=== PATIENT | female | born 1945 | race Caucasian/White ===

== ENCOUNTER → 2023-04-02 14:18 | Outpatient (REF) | payer MEDICARE, SELFPAY | LOC: WDC 14:18 | PROVIDERS: ATTENDING PHYSICIAN Internal Medicine | DX: Z12.31 Encounter for screening mammogram for malignant neoplasm of breast (principal); Z85.3 Personal history of malignant neoplasm of breast | CPT/HCPCS: 77063; 77067 ==

== ENCOUNTER 2023-07-03 07:40 | Emergency (ER) | payer MEDICARE, SELFPAY ==
[2023-07-03] VITALS (7 sets, daily range): BP systolic 116–145; BP diastolic 59–90
[2023-07-03 08:31] LABS: % Basophils 0.2 % (0-2); % Eosinophils 0.1 % (0-6); % Immature Granulocytes 0.5 % (0-0.5); % Lymphocytes 9.5 % (20.5-51.1); % Monocytes 12.7 % (1.7-9.3); Absolute Lymphocytes 0.8 10^3/uL (1.2-3.4); Absolute Monocytes 1.1 10^3/uL (0.1-0.6); Absolute Neutrophils 6.6 10^3/uL (1.4-6.5); Hematocrit 37.1 % (37.0-47.0); Hemoglobin 13.3 g/dL (12.0-16.0); Mean Corp Hgb Conc. 35.8 g/dL (33.0-37.0); Mean Corpuscular Hgb 29.4 pg (27.0-31.0); Mean Corpuscular Volume 81.9 fL (81.0-99.0); Mean Platelet Volume 9.8 fL (7.4-10.4); Nucleated Red Blood Cells % 0 %; Platelet Count 234 10^3/uL (130-400); Red Blood Cell Count 4.53 10^6/uL (4.20-5.40); Red Cell Dist. Width 13.1 % (11.5-14.5); White Blood Cell Count 8.6 10^3/uL (4.8-10.8)
--- NOTE | 2023-07-03 08:31 | ED.GENMED ---
History of Present Illness
General
Chief Complaint: Throat Problem
Source: patient and spouse
Exam Limitations: none
Time Seen by Provider: 07/03/23 08:15
Nursing documentation reviewed up to this point in time: agreed with
Travel History
Have you had any contact with someone who has COVID-19?: No
Do you have any symptoms of coronavirus? Fever > 100 degrees, chills, cough, shortness of breath, sore throat, loss of taste or smell, muscle aches, or headache?: No
History of Present Illness
History of Present Illness:
78-year-old female with a past medical history of hypertension, breast cancer status post left mastectomy who presents to the emergency department for evaluation of sore throat and fatigue. Patient reports onset of symptoms 5 days ago and have been
constant since that time. She reports sore throat worse with swallowing. She says she increased fatigue and bodyaches. She says that she has been feeling very shaky. She says she has had a mild intermittent headache (no headache today).
Describes subjective fever intermittently. She says that the symptoms have been ongoing in the setting of recent difficulties with urinary tract infection�she had her typical UTI symptoms of dysuria and increased frequency and saw her primary
doctor 2 weeks ago and was treated with Bactrim which did not help; she was then treated with Macrodantin which again did not help; finally last Sunday she was treated with fosfomycin which seems to have resolved her UTI symptoms but she is now
having throat pain and bodyaches as above. She did have an episode of 'crumpling up' on he says that she felt too weak to support her self but did not feel dizzy or lightheaded and did not pass out. Patient denies any chest pain, cough,
shortness of breath. She denies any GI symptoms. She adds that she thinks that this dental procedure may have precipitated her throat pain�she says that she was given some Novocain and that she thinks it may have dripped down her throat and
irritated things.
Past History
Past History
ED Past Medical History: HTN
ED Past Surgical History: None
Social History
Tobacco: Non-smoker
Alcohol: None
Drug: None
Personal:
Living: alone
Review of Systems
Review of Systems
All Other Systems: ROS reviewed and negative except as documented in HPI and ROS
Constitutional: Reports fever, fatigue and chills
EENT: Reports sore throat; Denies runny nose
Respiratory: Denies cough or trouble breathing
Cardiac: Denies chest pain or palpitations
ABD/GI: Denies abdominal pain, nausea or vomiting
: Denies dysuria, frequency or flank pain
Musculoskeletal: Denies neck pain or back pain
Neurological: Reports headache and weakness (Generalized); Denies numbness
Phy Exam
Physical Exam
Physical Exam:
General: Awake, alert, oriented x3; no acute distress
Head: Normocephalic, atraumatic
Eyes: Conjunctiva normal, EOMI
Throat: Airway intact, handling secretions, no tongue elevation; patient has significant erythema of the uvula and tonsils, soft palate; she has small shallow ulceration on the left upper soft palate and right tonsil; uvula is midline
Neck: Trachea midline, supple without meningismus, left greater than right cervical adenopathy
Lungs: Clear to auscultation bilaterally, no wheezing, rales, rhonchi
Heart: Regular rate and rhythm, no murmurs, gallops, or rubs
Abd: Soft, non distended, nontender
Neuro: Cranial nerves grossly intact, speech fluid, motor and sensory function intact and symmetric in all extremities
Skin: no rash
Extremities: No edema in extremities, equal pulses in all extremities
Scores
Heart Failure Risk
Heart Failure Risk Score: Not Applicable
Heart Score for Chest Pain Patients
STEMI patient?: Not applicable
Withdrawal Assessment of Alcohol
Withdrawal Assessment Completed?: Not applicable
Course
Orders/Labs/Results
Orders:
Orders
07/03/23 08:16
Electrocardiogram (*1) Urgent
Reason for Study: Syncope
EKG- Treatment ONCE
07/03/23 08:24
CMP [Comprehensive Metabolic Panel] Urgent
Complete Blood Count/With Diff Urgent
07/03/23 08:39
COVID-19 Antigen Urgent
Source: Nasal Swab
Osmolality, Random Urine Urgent
Date Specimen was Collected: 07/03/23
Time Specimen was Collected: 08:09
Urinalysis Reflex To Culture Urgent
Date Specimen was Collected: 07/03/23
Time Specimen was Collected: 08:09
Urine Microscopic Reflex Cult Urgent
Urine Sodium Urgent
Date Specimen was Collected: 07/03/23
Time Specimen was Collected: 08:09
Influenza A+B Rapid Molecular Urgent
KESHA Source: Nasal Swab
Specimen Description:
0.9% Sodium Chloride 500 ml [Nss] 500 ml IV BOLUS
Dexamethasone Sod Phosphate [Decadron] 10 mg IV NOW STA
Ketorolac [Toradol] 15 mg IV NOW STA
07/03/23 08:49
Rapid Strep Group A Urgent
KESHA Source: Throat/Pharynx
Specimen Description:
Date Specimen was Collected: 07/03/23
Time Specimen was Collected: 08:41
07/03/23 09:18
Add On- LAB Urgent
Tests Added?: urine sodium, urine osmolality
07/03/23 09:33
0.9% Sodium Chloride 500 ml [Nss] 500 ml IV BOLUS
07/03/23 10:06
Basic Metabolic Panel Urgent
07/03/23 10:48
0.9% Sodium Chloride 1000 ml [Nss] 1,000 ml IV BOLUS
07/03/23 12:45
Basic Metabolic Panel Urgent
Abnormal Lab Results
07/03/23 07/03/23 07/03/23
08: 08:39 10:06
Absolute Neuts (auto) 6.6 H 10^3/uL
(1.4-6.5)
Absolute Lymphs (auto) 0.8 L 10^3/uL
(1.2-3.4)
Absolute Monos (auto) 1.1 H 10^3/uL
(0.1-0.6)
Neutrophils % 77.0 H %
(42.2-75.2)
Lymphocytes % 9.5 L %
(20.5-51.1)
Monocytes % 12.7 H %
(1.7-9.3)
Sodium 125 L mmol/L 127 L mmol/L
(135-145) (135-145)
Chloride 90 L mmol/L 95 L mmol/L
(98-107) (98-107)
Creatinine 0.5 L mg/dL
(0.6-1.0)
Glucose 116 H mg/dl 100 H mg/dl
(70-99) (70-99)
Calcium 7.8 L mg/dl
(8.4-10.2)
AST 46 H U/L
(14-36)
Urine Ketones 3+ A
(Negative)
Ur Occult Blood Reflex Trace A
(Negative)
Leukocyte Esterase Rfl Trace A
(Negative)
Urine RBC 3-6 A /HPF
(0-2)
Urine Bacteria (Reflex) Few A
(Negative)
Urine Sodium 14 L mmol/L
(30-90)
SARS-CoV-2 Antigen Positive A
(Negative)
07/03/23
12:45
Absolute Neuts (auto)
Absolute Lymphs (auto)
Absolute Monos (auto)
Neutrophils %
Lymphocytes %
Monocytes %
Sodium 131 L mmol/L
(135-145)
Chloride
Creatinine 0.5 L mg/dL
(0.6-1.0)
Glucose 114 H mg/dl
(70-99)
Calcium
AST
Urine Ketones
Ur Occult Blood Reflex
Leukocyte Esterase Rfl
Urine RBC
Urine Bacteria (Reflex)
Urine Sodium
SARS-CoV-2 Antigen
07/03/23 08:24
07/03/23 12:45
Vital Signs
Initial and Last Documented VS:
Initial Vital Signs
Temp Pulse Resp BP Pulse Ox
36.6 C 95 16 139/90 95
07/03/23 07:51 07/03/23 07:51 07/03/23 07:51 07/03/23 07:51 07/03/23 07:51
Last Documented Vital Signs
Temp Pulse Resp BP Pulse Ox
36.6 C 71 17 126/70 95
07/03/23 07:51 07/03/23 13:00 07/03/23 13:00 07/03/23 13:00 07/03/23 07:51
MDM/Problems Addressed
Differential Diagnosis Includes:
Viral pharyngitis/tonsillitis, strep pharyngitis, aphthous ulcers
MDM/Problems Addressed:
78-year-old female presents for evaluation of sore throat associate with fatigue, subjective fevers and aches over the past few days. Also had recent UTI which is difficult to treat but seems to have resolved with a dose of fosfomycin. Vital signs
are normal today. Exam as above. Suspect that this is likely a viral syndrome. Plan to check basic lab work given her report of significant fatigue will check CBC to rule out anemia, CMP to rule out any electrolyte derangements or renal
dysfunction. Will check urinalysis to ensure clearing of recent UTI. Will swab for strep and COVID/flu. Will treat with some Toradol for throat pain as well as some dexamethasone. Will monitor closely reassess after the above.
Patient's COVID swab came back positive but suspect this is likely etiology of her symptoms. Reviewed her labs her CBC is unremarkable, CMP does show some hyponatremia to 125 with centrally normal glucose. Suspect she is likely hypovolemic with a
sore throat she says she has not been drinking as much�will provide some normal saline. Added urine sodium and osmolality. Discussed with nephrology for recommendations--will follow-up on urine sodium and osmolality but if hypovolemic plan for
fluid bolus and repeat BMP. If sodium increasing to greater than 128 can follow-up outpatient.
Urine osmolality normal, urine sodium 14 consistent with hypovolemic hyponatremia. Continue fluid resuscitation and repeat BMP, if improving plan for discharge.
Discussed potentially prescribing Paxlovid for patient given patient is already 4-5 days into illness with relatively mild symptoms using shared decision making we will hold off on this medication.
Sodium improving with fluids up to 131. Patient is feeling better with hydration as well as Toradol/dexamethasone. Stable for discharge at this point. Will follow-up with her primary doctor for repeat labs as an outpatient. She feels comfortable
with this plan. Spoke about return precautions and all questions answered.
*Pulse Oximetry
Patient hypoxic: no
*EKG
Interpreted by ED Provider?: Yes
Heart Rate: 88
Rate: normal
Rhythm: sinus
[place]: normal axis
Interval: normal interval
QRS Pattern: normal QRS
Ischemia: no ischemia
*Critical Care Note
Total Time (30-74mins, 75-104mins- exclusive of procedures): Not Applicable
Data Reviewed
Source: patient and spouse
Prescriptions/Medications Considered But Not Given:
Considered Paxlovid
Patient Management
Discussion with other providers: Be[employer]aker (Discussed with nephrology)
ED Attending Note
-
Portions of this chart may have been created with voice recognition software.� Occasional wrong word or��sound alike� substitutions may have occurred due to the inherent limitations of voice recognition software.
Discharge Plan
Departure
Patient Disposition: Home (Routine Discharge)
Date of Disposition: 07/03/23
Time of Disposition: 13:39
Patient with high blood pressure during this ER visit?: No
Discharge Problem:
COVID-19, Hyponatremia
Instructions: COVID-19 ED, Hyponatremia
Prescriptions:
No Action
Theragen Tablet
1 tab PO DAILY PRN (Reason: supplement)
acetaminophen [Tylenol Extra Strength] 500 mg Tablet
500 mg PO BIDPRN PRN (Reason: mild pain)
levothyroxine 75 mcg Tablet
75 mcg PO DAILY
psyllium Powder
1 tsp PO DAILY PRN (Reason: constipation)
ibuprofen [Advil] 200 mg Tablet
200 mg PO BIDPRN PRN (Reason: mild pain)
carboxymethylcellulose sodium [Refresh] 1 % Drops, Liquid Gel
1 drp BOTH EYES HS
Patient Comments:
07/03/2023, pt. takes in the middle of the night for dry eyes.
hydrochlorothiazide 12.5 mg Tablet
12.5 mg PO DAILY
Referrals:
Frances Ventura MD [Family Provider] - Follow up in 5-7 days
Activity Restrictions/Additional Instructions:
Thank you for visiting the Emergency Department at [facility].
1. Please schedule a follow up appointment as directed. Call first thing tomorrow morning to make an appointment.
2. If indicated, please take your medications as instructed and indicated on discharge paperwork.
3. If any of your symptoms do not improve, or persist, or become more severe within 6-12 hours, please return to the emergency department for further care.
4. Please return to the emergency department if you develop a headache, neck pain/stiffness, fever greater than 100.4F, chest pain, shortness of breath, persistent nausea, vomiting, slurred speech, difficulty walking, numbness/tingling, weakness,
signs of infection or any other symptoms that are worrisome to you.
Please call [phone] if you have any questions.
Interventions
Interventions:
*Risk Screen - Suicide Last Done: 07/03/23 08:06
*Neglect/Abuse Screening Last Done: 07/03/23 08:06
ED- Fall Risk Assessment Last Done: 07/03/23 08:08
*ED COVID-19 Vaccine History Last Done: 07/03/23 08:08
ED-EENT Assessment Last Done: 07/03/23 08:29
ED- Pulmonary Assessment Last Done: 07/03/23 08:27
Discharge Date and Time
Print Language: [facility]
[2023-07-03 08:42] LABS: ALT (SGPT) 34 U/L (0-35); AST (SGOT) 46 U/L (14-36); Albumin 4.1 g/dl (3.5-5.0); Alkaline Phosphatase 107 U/L (38-126); Blood Urea Nitrogen 15 mg/dl (7-17); Calcium 8.9 mg/dl (8.4-10.2); Carbon Dioxide 26 mmol/L (22-30); Chloride 90 mmol/L (98-107); Glucose 116 mg/dl (70-99); Potassium 3.7 mmol/L (3.5-5.1); Sodium 125 mmol/L (135-145); Total Bilirubin 0.5 mg/dl (0.2-1.3); Total Protein 7.1 g/dl (6.3-8.2); eGFR > 60.00
[2023-07-03] MEDS: NSS 500 IV ×2 (08:42→09:36)
[2023-07-03] MEDS: TORADOL 15 MG IV (08:44)
[2023-07-03] MEDS: DECADRON 10 MG IV (08:46)
[2023-07-03 09:00] LABS: COVID-19 Antigen Positive (Negative)
[2023-07-03 09:07] LABS: Urine Albumin Trace (Neg - Trace); Urine Bilirubin Negative (Negative); Urine Character Clear (Clear); Urine Color Yellow; Urine Glucose Negative (Negative); Urine Ketone 3+ (Negative); Urine Leukocyte Trace (Negative); Urine Nitrite Negative (Negative); Urine Occult Blood Trace (Negative); Urine Specific Gravity 1.015 (<1.030); Urine Urobilinogen Negative (Neg - 1+)
[2023-07-03 09:36] LABS: Urine Bacteria Few (Negative)
[2023-07-03 09:38] LABS: Osmolality Urine 411 mOsm/kg (300-900)
[2023-07-03 09:57] LABS: Urine Sodium 14 mmol/L (30-90)
[2023-07-03 10:39] LABS: Blood Urea Nitrogen 14 mg/dl (7-17); Calcium 7.8 mg/dl (8.4-10.2); Carbon Dioxide 27 mmol/L (22-30); Chloride 95 mmol/L (98-107); Glucose 100 mg/dl (70-99); Potassium 3.6 mmol/L (3.5-5.1); Sodium 127 mmol/L (135-145); eGFR > 60.00
[2023-07-03] MEDS: NSS 1000 IV (11:09)
[2023-07-03 13:14] LABS: Blood Urea Nitrogen 12 mg/dl (7-17); Calcium 8.4 mg/dl (8.4-10.2); Carbon Dioxide 25 mmol/L (22-30); Chloride 98 mmol/L (98-107); Glucose 114 mg/dl (70-99); Potassium 3.9 mmol/L (3.5-5.1); Sodium 131 mmol/L (135-145); eGFR > 60.00
== END 2023-07-03 14:37 | disposition home or self-care (01) ==
LOC: EMR 07:40
PROVIDERS: Emergency Medicine; EMERGENCY PHYSICIAN Emergency Medicine; FAMILY PHYSICIAN Internal Medicine
DX: U07.1 COVID-19 (principal); E87.1 Hypo-osmolality and hyponatremia; I10 Essential (primary) hypertension; Z85.3 Personal history of malignant neoplasm of breast; Z90.12 Acquired absence of left breast and nipple
CPT/HCPCS: 99283; 80048; 80053; 81003; 81015; 83935; 84300; 85025; 87070; 87502; 87811; 87880; 93005

== ENCOUNTER → 2023-09-18 17:08 | Outpatient (REF) | payer MEDICARE, SELFPAY ==
[2023-09-18 17:52] LABS: Urine Albumin Negative (Neg - Trace); Urine Bilirubin Negative (Negative); Urine Character Clear (Clear); Urine Color Yellow; Urine Glucose Negative (Negative); Urine Ketone Trace (Negative); Urine Leukocyte 2+ (Negative); Urine Nitrite Positive (Negative); Urine Occult Blood Trace (Negative); Urine Urobilinogen Negative (Neg - 1+)
[2023-09-18 18:21] LABS: Urine Squamous Cell 21-25 /LPF (Few)
[2023-09-18 18:22] LABS: Urine Bacteria Moderate (Negative); Urine White Cell >100 /HPF (0-5)
[2023-09-18 18:23] LABS: Urine Red Blood Cell 0-2 /HPF (0-2)
== END ==
LOC: REG 17:08
PROVIDERS: ATTENDING PHYSICIAN Obstetrics & Gynecology; FAMILY PHYSICIAN Family Medicine
DX: N39.0 Urinary tract infection, site not specified (principal)
CPT/HCPCS: 81003; 81015; 87086; 87088; 87186

== ENCOUNTER → 2023-10-17 09:44 | Outpatient (REF) | payer MEDICARE, SELFPAY | LOC: RAD 09:44 | PROVIDERS: ATTENDING PHYSICIAN Family Medicine | DX: Z78.0 Asymptomatic menopausal state (principal) | CPT/HCPCS: 77080 ==

== ENCOUNTER → 2024-02-27 15:58 | Outpatient (REF) | payer MEDICARE, SELFPAY | LOC: RCS 15:58 | PROVIDERS: ATTENDING PHYSICIAN Family Medicine | DX: I10 Essential (primary) hypertension (principal); R94.31 Abnormal electrocardiogram [ECG] [EKG] | CPT/HCPCS: 93306 ==

== ENCOUNTER → 2024-04-03 12:16 | Outpatient (REF) | payer MEDICARE, SELFPAY | LOC: WDC 12:16 | PROVIDERS: ATTENDING PHYSICIAN Family Medicine | DX: Z12.31 Encounter for screening mammogram for malignant neoplasm of breast (principal) | CPT/HCPCS: 77063; 77067 ==